=== PATIENT | female | born 1950 | race Caucasian/White ===

== ENCOUNTER → 2017-10-22 | Outpatient (CLI) | payer OTHER, MEDICARE ==
[~2017-10-22] MED LIST: FLEXERIL PO; NEXIUM; NEXIUM40 MG PO; NORCO 5-325 TA1 EACH PO
== END ==
LOC: RAD 09:46
DX: M85.89 Other specified disorders of bone density and structure, multiple sites (principal); R05 Cough; R06.02 Shortness of breath; Z78.0 Asymptomatic menopausal state

== ENCOUNTER → 2017-11-12 | Outpatient (CLI) | payer OTHER, MEDICARE | LOC: RAD 13:43 | DX: J40 Bronchitis, not specified as acute or chronic (principal) ==

== ENCOUNTER → 2017-12-14 | Outpatient (CLI) | payer OTHER, MEDICARE ==
--- NOTE | ~2017-12-14 | EKG ---
[place] [id number] [address] [facility] [place] [address] ELECTROCARDIOGRAM REPORT Name: WILYMARTA Carty Room #: [facility]#: [id number] Admission: 12/14/17 Attend Phys: Xena Thurman MD Discharge: Date of : 52 Report #: [id number] THIS REPORT FOR: //name// [facility] Test Date: 2017-12-14 Test Time: 14:28:23 Pat Name: MARTA BROCK Department: Room: Gender: F [employer] Maker: Katie RODRIGUEZ : 1950 Requested By: Xena Thurman Order Number: [id number] MD: Tk Mcnair Measurements Intervals [place] Rate: 59 P: 71 SC: 174 QRS: -22 QRSD: 97 T: 28 QT: 416 QTc: 413 Interpretive Statements Sinus bradycardia Borderline left axis deviation Abnormal R-wave progression, late transition No previous ECG available for comparison Electronically Signed On 12-14-2017 16:31:20 CDT by Tk Mcnair [email or web address] <ELECTRONICALLY SIGNED> By: Tk Mcnair MD, [facility] 12/14/17 1631 D: 03/1427 142 Tk Mcnair MD, FACC /EPI
== END ==
LOC: CV 13:58
DX: Z01.818 Encounter for other preprocedural examination (principal)

== ENCOUNTER → 2018-03-07 | Outpatient (CLI) | payer OTHER, MEDICARE ==
[2018-03-07 09:24] LABS: CREATININE 0.8 mg/dL (0.6-1.0)
== END ==
LOC: CAT 08:58
PROVIDERS: Family Medicine
DX: R91.1 Solitary pulmonary nodule (principal); R07.81 Pleurodynia

== ENCOUNTER → 2018-03-18 | Outpatient (CLI) | payer OTHER, MEDICARE | LOC: ULTRA 06:11 | DX: K76.89 Other specified diseases of liver (principal); Q44.6 Cystic disease of liver ==

== ENCOUNTER → 2019-05-23 | Outpatient (CLI) | payer OTHER | LOC: CAT 08:52 | DX: Z13.6 Encounter for screening for cardiovascular disorders (principal); E78.00 Pure hypercholesterolemia, unspecified; I25.10 Atherosclerotic heart disease of native coronary artery without angina pectoris ==

== ENCOUNTER → 2019-05-23 | Outpatient (CLI) | payer OTHER, MEDICARE | LOC: NUC 08:48 | DX: M85.88 Other specified disorders of bone density and structure, other site (principal) ==

== ENCOUNTER → 2021-03-14 | Outpatient (CLI) | payer OTHER | LOC: CAT 08:00 | PROVIDERS: ATTEND Family Medicine | DX: Z13.6 Encounter for screening for cardiovascular disorders (principal) ==

== ENCOUNTER → 2021-03-21 | Outpatient (CLI) | payer OTHER, MEDICARE | LOC: SJCVCIMAG 09:44 | PROVIDERS: ATTEND Family Medicine | DX: M79.661 Pain in right lower leg (principal); M79.89 Other specified soft tissue disorders ==